=== PATIENT | male | born 1955 | race Caucasian/White ===

== ENCOUNTER 2023-06-28 11:07 | Emergency (ER) | payer MEDICARE, OTHER | END 2023-06-28 11:57 | disposition left against medical advice (07) | LOC: ER 11:11 | DX: S61.219A Laceration without foreign body of unspecified finger without damage to nail, initial encounter (principal); Z53.21 Procedure and treatment not carried out due to patient leaving prior to being seen by health care provider; X58.XXXA Exposure to other specified factors, initial encounter; Y93.89 Activity, other specified; Y92.89 Other specified places as the place of occurrence of the external cause; Y99.8 Other external cause status ==